=== PATIENT | female | born 1980 | race Two or more races ===

== ENCOUNTER 2021-11-23 14:39 | Emergency (ER) | payer MEDICARE, MEDICAID, OTHER ==
[~2021-11-23] VITALS: Ht 157.5 cm; Wt 124.7 kg
[2021-11-23 15:05] VITALS: BP 154/90
[2021-11-23] MEDS ORDERED: ACETAMINOPHEN 500 MG TAB PO ONE (15:15)
[2021-11-23] MEDS ORDERED: ONDANSETRON ODT 4 MG TAB PO ONE (15:15)
[2021-11-23] MEDS ORDERED: AZIT500T66 PO (16:01)
[2021-11-23] MEDS ORDERED: IBUP800T27 PO (16:01)
[2021-11-23] MEDS ORDERED: METH750T22 PO (16:01)
== END 2021-11-23 16:18 | disposition home or self-care (01) ==
LOC: ER 14:39 → EDBD 14:39 → ER 16:17
DX: S16.1XXA Strain of muscle, fascia and tendon at neck level, initial encounter (principal); S39.012A Strain of muscle, fascia and tendon of lower back, initial encounter; M43.16 Spondylolisthesis, lumbar region; J03.90 Acute tonsillitis, unspecified; Z79.1 Long term (current) use of non-steroidal anti-inflammatories (NSAID); Z79.2 Long term (current) use of antibiotics; Z79.899 Other long term (current) drug therapy; V49.9XXA Car occupant (driver) (passenger) injured in unspecified traffic accident, initial encounter; Y93.89 Activity, other specified; Y92.89 Other specified places as the place of occurrence of the external cause; Y99.8 Other external cause status
CPT/HCPCS: 72040; 72100; 93005; 99284; Q0162

== ENCOUNTER 2022-04-16 19:58 | Emergency (ER) | payer MEDICARE, MEDICAID ==
[~2022-04-16 19:58] MED LIST: AZIT500T66 PO; IBUP800T27 PO; METH750T22 PO
[2022-04-16 20:20] VITALS: BP 145/83
[2022-04-16 21:06] LABS: Urine Bacteria NONE SEEN /hpf (None Seen); Urine Blood 1+ /uL (Negative); Urine Mucus FEW (None Seen); Urine Specific Gravity 1.025 (1.001-1.035); Urine WBC 10 /hpf (0 - 5)
[2022-04-16 22:33] LABS: Basophils # (auto) 0 10 ^3/uL (0-0.2); Basophils % (auto) 0.2 % (0.0-2.0); Eosinophils # (auto) 0 10 ^3/uL (0-0.8); Eosinophils % (auto) 0.3 % (0.0-7.0); Hematocrit 39.6 % (36.0-46.0); Hemoglobin 12.7 g/dL (12.2-16.2); Lymphocytes # (auto) 2.3 10 ^3/uL (0.4-5.4); Lymphocytes % (auto) 13.9 % (10.0-50.0); Mean Corpuscular Hgb Conc. 32.1 g/dL (32.0-36.0); Mean Corpuscular Volume 84.3 fL (80.0-100.0); Monocytes # (auto) 0.7 10 ^3/uL (0-1.3); Monocytes % (auto) 4.1 % (0.0-12.0); Neutrophils # (auto) 13.6 10 ^3/uL (1.6-8.6); Neutrophils % (auto) 81.5 % (37.0-80.0); Red Cell Distribution Width 14.6 % (11.8-14.3); White Blood Cell 16.8 10^3/uL (4.4-10.8)
[2022-04-16 22:53] LABS: Potassium 3.7 mmol/L (3.5-5.1)
[2022-04-16 22:56] LABS: Albumin 3.6 g/dL (3.4-5.0); BUN/Creatinine Ratio 19.4; Calcium 9.1 mg/dL (8.5-10.1)
[2022-04-16 23:03] LABS: Bilirubin, Total 0.2 mg/dL (0.2-1.0); Total Protein 8.1 g/dL (6.4-8.2)
== END 2022-04-16 22:42 | disposition left against medical advice (07) ==
LOC: ER 19:58
DX: R10.30 Lower abdominal pain, unspecified (principal); R11.0 Nausea; R19.7 Diarrhea, unspecified; R30.0 Dysuria; R31.9 Hematuria, unspecified; Z79.1 Long term (current) use of non-steroidal anti-inflammatories (NSAID); Z79.2 Long term (current) use of antibiotics; Z79.899 Other long term (current) drug therapy
CPT/HCPCS: 36415; 74176; 80053; 81001; 81025; 85025

== ENCOUNTER 2025-07-28 12:43 | Emergency (ER) | payer MEDICAID, OTHER ==
[~2025-07-28] VITALS: Ht 157.5 cm; Wt 92.7 kg
[~2025-07-28 12:43] MED LIST changes: +IBUP-1456 PO; -IBUP800T27 PO; +METH-1182 PO; -METH750T22 PO
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
[2025-07-28] MEDS ORDERED: TRAM-626 PO (13:55)
[2025-07-28] MEDS: KETOROLAC TROMETH 60MG/2ML VIAL IM ONE (14:55)
[2025-07-28 14:59] VITALS: BP 143/77; PULSE 77; RESP 18; TEMP 97.8; O2SAT 97
== END 2025-07-28 15:39 | disposition home or self-care (01) ==
LOC: EDUNIT# 12:43 → ER 12:43 → EDBD 12:43 → ER 15:39
DX: S39.012A Strain of muscle, fascia and tendon of lower back, initial encounter (principal); Z79.899 Other long term (current) drug therapy; V89.2XXA Person injured in unspecified motor-vehicle accident, traffic, initial encounter; Y93.89 Activity, other specified; Y92.488 Other paved roadways as the place of occurrence of the external cause; Y99.8 Other external cause status
CPT/HCPCS: 72100; 96372; 99283; J1885